=== PATIENT | male | born 1995 | race Caucasian/White ===

== ENCOUNTER 2017-12-02 18:17 | Emergency (ER) | payer OTHER ==
[~2017-12-02] VITALS: Ht 180.3 cm; Wt 81.7 kg
[~2017-12-02 18:17] MED LIST: ACNE CLEARING295 ML; NOHOMEMEDICATIONS
[2017-12-02] MEDS ORDERED: KEFLEX500 M1 PO (19:03)
[2017-12-02 19:13] VITALS: BP 127/71
== END 2017-12-02 19:13 | disposition home or self-care (01) ==
LOC: M.ERS 18:17
DX: S01.81XA Laceration without foreign body of other part of head, initial encounter (principal); S05.12XA Contusion of eyeball and orbital tissues, left eye, initial encounter; X58.XXXA Exposure to other specified factors, initial encounter; Y93.67 Activity, basketball; Y92.310 Basketball court as the place of occurrence of the external cause; Y99.8 Other external cause status